=== PATIENT | female | born 2000 | race Hispanic/Latino ===

== ENCOUNTER 2023-02-24 14:50 | Emergency (ER) | payer OTHER, SELFPAY ==
[2023-02-24 15:00] VITALS: BP 110/72; PULSE 70; RESP 18; TEMP 37.3; O2SAT 99; BMI 28.0
--- NOTE | 2023-02-24 15:25 | PC.NURSE ---
patient has been taking amox/clav for the last week for strep and yesterday had a full body rash. Little red pin points over her body. She denies fever, nausea but has had some diarrhea for the lat week. She is able to keep food and fluids down. No SOB
[2023-02-24] MEDS: diphenhydrAMINE 50 MG/ML VIAL IV (16:07)
[2023-02-24] MEDS: methylPREDNISolone 125 MG/2 ML VIAL IV (16:08)
--- NOTE | 2023-02-24 16:25 | ED_ITS ---
HPI - Skin/Abscess/Foreign Bdy <LEISA Hu Last Filed: 02/24/23 17:57> General Chief complaint: Skin/Abscess/Foreign Body Stated complaint: spreading rash Time Seen by Provider: 02/24/23 15:13 History of Present Illness HPI narrative: This is a 22-year-old female presents to the emergency department due to a rash. She states that she was given a week of Augmentin to treat strep throat which she completed but the day after began developing a generalized rash to her body. She denies any difficulty breathing or swallowing and no sensation of her throat swelling. Primary concerns of the rash. Related Data Previous Rx's Medication Instructions Recorded diphenhydramine HCl 25 mg capsule 50 mg (2 x 25 mg) PO Q6H 5 days 02/24/23 (Benadryl) #40 caps prednisone 20 mg tablet 40 mg (2 x 20 mg) PO DAILY 5 days 02/24/23 #10 tabs Allergies Allergy/AdvReac Type Severity Reaction Status Date / Time amoxicillin Allergy Intermediate Rash Verified 02/24/23 17:25 Review of Systems <LEISA Hu Last Filed: 02/24/23 17:57> Review of Systems Narrative: GENERAL: Denies chills, fatigue, malaise, fever, sweats. HEENT: Denies sinus pain, ear pain, sore throat, difficulty swallowing, dizziness. RESPIRATORY: Denies dyspnea, cough, wheezing, hemoptysis, sputum. CARDIOVASCULAR: Denies chest pain, palpitations, orthopnea, edema, GASTROINTESTINAL: Denies nausea, vomiting, abdominal pain, diarrhea, constipation, melena. : Denies dysuria, frequency, incontinence, hematuria, urinary retention. MUSCULOSKELETAL: denies weakness, joint pain, or bony pain SKIN: Reports generalized rash, denies skin lesions, or other NEUROLOGIC: Denies weakness, headache, numbness, change in speech, confusion, seizures, incoordination. PSYCHIATRIC: No concerning psychosocial issues. 12 point review of systems is negative except for those stated above Patient History <LEISA Hu Filed: 02/24/23 17:57> Social History Smoking Status: Current every day smoker Smoking Status: Current every day smoker tobacco type: vaping alcohol intake frequency: 0-2 drinks per day Substance Use Type: does not use Exam <LEISA Hu Filed: 02/24/23 17:57> Narrative Exam Narrative: GENERAL: Well-developed patient, in mild distress. HEAD: Atraumatic. Normocephalic. EYES: Pupils equal round and reactive. Extraocular motions intact. No scleral icterus. No injection or drainage. ENT: Nose without bleeding, purulent drainage. Throat without erythema, tonsillar hypertrophy or exudate. Airway patent. NECK: Trachea midline. Non tender CARDIOVASCULAR: Regular rate and rhythm without murmurs, gallops, or rubs. RESPIRATORY: Clear to auscultation. Breath sounds equal bilaterally. No wheezes, rales, or rhonchi. GASTROINTESTINAL: Abdomen soft, non-tender, nondistended. EXTREMITIES: No edema or joint tenderness. BACK: Nontender without deformity or crepitance. No flank tenderness. NEURO: AOx3. SKIN: Generalized rash to the majority of the patient's arms as well as abdomen and back. No significant warmth to the touch or crusting. Initial Vital Signs Initial Vital Signs: Vital Signs Temperature 99.2 F 02/24/23 15:00 Pulse Rate 70 02/24/23 15:00 Respiratory Rate 18 02/24/23 15:00 Blood Pressure 110/72 02/24/23 15:00 Pulse Oximetry 99 02/24/23 15:00 Oxygen Delivery Method Room Air 02/24/23 15:00 <Jesse Simental DO - Last Filed: 02/25/23 09:22> Initial Vital Signs Initial Vital Signs: Vital Signs Temperature 99.2 F 02/24/23 15:00 Pulse Rate 70 02/24/23 15:00 Respiratory Rate 18 02/24/23 15:00 Blood Pressure 110/72 02/24/23 15:00 Pulse Oximetry 99 02/24/23 15:00 Oxygen Delivery Method Room Air 02/24/23 15:00 Course <Cassius Cuevas PA-C - Last Filed: 02/24/23 17:57> Orders Ordered: Discontinued Medications Diphenhydramine HCl (Diphenhydramine 50 Mg/Ml Vial) 50 mg IV NOW ONE Stop: 02/24/23 15:48 Last Admin: 02/24/23 16:07 Dose: 50 mg Documented By: TERRA Sodium Chloride (Normal Saline 0.9%) 1,000 mls @ 1,000 mls/hr IV BOLUS ONE Stop: 02/24/23 17:24 Last Admin: 02/24/23 16:31 Dose: Not Given Documented By: TERRA Methylprednisolone (Methylprednisolone 125 Mg/2 Ml Vial) 125 mg IV NOW ONE Stop: 02/24/23 15:48 Last Admin: 02/24/23 16:08 Dose: 75 mg Documented By: TERRA Vital Signs Vital signs: Vital Signs - 8 hr 02/24/23 15:00 02/24/23 16:39 02/24/23 17:03 Temperature 99.2 F Pulse Rate 70 60 64 Respiratory Rate 18 18 18 Blood Pressure 110/72 111/65 106/65 Pulse Oximetry 99 100 100 Oxygen Delivery Method Room Air Room Air Room Air <Jesse Simental DO - Last Filed: 02/25/23 09:22> Orders Ordered: Discontinued Medications Diphenhydramine HCl (Diphenhydramine 50 Mg/Ml Vial) 50 mg IV NOW ONE Stop: 02/24/23 15:48 Last Admin: 02/24/23 16:07 Dose: 50 mg Documented By: TERRA Sodium Chloride (Normal Saline 0.9%) 1,000 mls @ 1,000 mls/hr IV BOLUS ONE Stop: 02/24/23 17:24 Last Admin: 02/24/23 16:31 Dose: Not Given Documented By: TERRA Methylprednisolone (Methylprednisolone 125 Mg/2 Ml Vial) 125 mg IV NOW ONE Stop: 02/24/23 15:48 Last Admin: 02/24/23 16:08 Dose: 75 mg Documented By: TERRA Vital Signs Vital signs: Vital Signs - 8 hr 02/24/23 15:00 02/24/23 16:39 02/24/23 17:03 Temperature 99.2 F Pulse Rate 70 60 64 Respiratory Rate 18 18 18 Blood Pressure 110/72 111/65 106/65 Pulse Oximetry 99 100 100 Oxygen Delivery Method Room Air Room Air Room Air MDM - Skin/Abscess/Foreign Bdy <Cassius Cuevas PA-C - Last Filed: 02/24/23 17:57> MDM Narrative Medical decision making narrative: MDM * differential diagnosis includes but not limited to allergic reaction, chickenpox * Prior records reviewed: Patient has not been here for similar complaints in the past. * My lab interpretation: None obtained * My imgaing interpretation: None obtained * Clinical Decision Rules/Scores evaluated: None * Independent discussions with: None ED Course: This is a 22-year-old female presents emergency department due to suspected allergic reaction to a recent course of amoxicillin she was prescribed. Patient was given Solu-Medrol and Benadryl here in the emergency department and will be prescribed with a course of prednisone as well as Benadryl to take at home. She would not present with any significant shortness of breath or difficulty breathing or swallowing. Shared Decision Making: Discussed plan with the patient who is comfortable with the plan. Social Considerations: None Disposition: Discharged to home Discharge Plan Departure Patient Disposition: Home Clinical Impression: Allergic reaction to drug Activity Restrictions/Additional Instructions: Thank you for coming to the [facility] Emergency Department today. It seems that you have had an allergic reaction to the amoxicillin that you are prescribed. Please take the Benadryl as prescribed as well as the prednisone. Please follow up with the primary care provider if your symptoms continue. I hope you feel better soon. Please follow up with your primary care provider within a week if your symptoms continue. If you do not have a primary care provider please contact the [facility] Resource line at [phone]. They will ask some questions about your medical history and help you get set up with a provider in the community. Prescriptions: New diphenhydramine HCl [Benadryl] 25 mg capsule 50 mg PO Q6H 5 Days Qty: 40 0RF prednisone 20 mg tablet 40 mg PO DAILY 5 Days Qty: 10 0RF Referrals: ProviderLyla [Primary Care Provider] - Stand Alone Forms: Patient Portal/API, Work Release Note ED Sign-out <Jesse Simental DO - Last Filed: 02/25/23 09:22> Cosign ED Attending Sridhar Attestation: I was immediately available in the department for consultation. Documentation has been reviewed. I agree with assessment and plan.
--- NOTE | 2023-02-24 16:33 | PC.NURSE ---
patient reported feeling dizzy after receiving her bendryl and half of her solu medrol. She was reclined and the other half of the solumedrol was wasted. Her vitals were taken and her blood pressure was 125/70 and her o2 sat was 100%. her resp rate 18. and her hr 85. after 5 minutes she was reassessed and she stated that she felt better but was still a little dizzy. Provider aware.
[2023-02-24 16:39] VITALS: BP 111/65; PULSE 60; RESP 18; O2SAT 100
[2023-02-24 17:03] VITALS: BP 106/65; PULSE 64; RESP 18; O2SAT 100
== END 2023-02-24 17:25 | disposition home or self-care (01) ==
PROVIDERS: Emergency Provider Physician Assistant Medical
DX: L27.0 Generalized skin eruption due to drugs and medicaments taken internally (principal); T36.0X5A Adverse effect of penicillins, initial encounter
CPT/HCPCS: 36415; 96361; 96374; 96375; 99284; J1200; J2930